=== PATIENT | male | born 1980 | race African-American/Black ===

== ENCOUNTER → 2020-11-14 | Outpatient (CLI) | payer MEDICAID | LOC: COL.RAD 11-13 08:00 | DX: I77.810 Thoracic aortic ectasia (principal) | CPT/HCPCS: Q9967 ==

== ENCOUNTER 2021-03-23 06:36 | Outpatient (CLI) | payer MEDICAID ==
[~2021-03-23] VITALS: Ht 188.1 cm; Wt 122.6 kg
[2021-03-23 07:47] LABS: HEMATOCRIT 42.9 % (42.0-52.0); HEMOGLOBIN 14.2 g/dl (13.5-18.0); MEAN CELL VOLUME 84 fl (80.0-100.0); MEAN CORPUSCULAR HEMOGLOBIN 28 pg (27.0-31.0); MEAN CORPUSCULAR HGB CONC 33 g/dl (33.0-37.0); MEAN PLATELET VOLUME 8.4 fl (7.4-10.4); PLATELET COUNT 355 K/mm3 (130-400); RED BLOOD COUNT 5.14 M/mm3 (4.20-5.60); REDCELL DISTRIBUTION WIDTH-CV 13.4 % (11.5-14.5)
[2021-03-23 07:55] LABS: INR 1.1 (0.8-3.0)
[2021-03-23] MEDS ORDERED: NORVASC 5MG5 MG/TAB PO (07:55)
[2021-03-23] MEDS ORDERED: ZESTRIL 5MG5 MG PO (07:56)
[2021-03-23 07:58] LABS: CALCIUM 9.1 mg/dL (8.4-10.2); CREATININE, serum 0.85 (0.66-1.25); POTASSIUM 4.1 mmol/L (3.4-5.0)
[2021-03-23 08:01] VITALS: BP 113/86; PULSE 57; TEMP 98
[2021-03-23 08:30] VITALS: BP 115/83; PULSE 66; PULSE 68
[2021-03-23 08:45] VITALS: BP 103/74; PULSE 60
[2021-03-23 09:00] VITALS: BP 120/88; PULSE 64
[2021-03-23 09:15] VITALS: BP 132/89; PULSE 57
[2021-03-23 09:30] VITALS: BP 110/86; PULSE 61
--- NOTE | 2021-03-23 10:05 | NUR ---
Discharge instructions given to pt.Pt verbalizes understanding.INT removed,catheter tip intact.Pt escorted out via wheelchair by kailyn lange.
== END 2021-03-23 10:39 | disposition home or self-care (01) ==
LOC: COL.RAD 06:36
PROVIDERS: Internal Medicine Interventional Cardiology
DX: I77.810 Thoracic aortic ectasia (principal)
CPT/HCPCS: J2704; J3010